=== PATIENT | female | born 1985 ===

== ENCOUNTER 2017-03-17 09:00 | Observation (INO) | payer SELFPAY ==
[~2017-03-17] VITALS: Ht 167.6 cm; Wt 78.5 kg
[2017-03-17] MEDS ORDERED: PREN-96 PO ×2 (09:44→09:57)
[2017-03-17 10:34] LABS: Basophils # (auto) 0 uL; Basophils % (auto) 0.2 % (0.0-2.0); Eosinophils # (auto) 0.1 uL; Eosinophils % (auto) 0.8 % (0.0-7.0); Hematocrit 34.4 % (36.0-46.0); Hemoglobin 11.7 g/dL (12.2-16.2); Lymphocytes # (auto) 1.8 uL; Lymphocytes % (auto) 20.8 % (10.0-50.0); Mean Corpuscular Hemoglobin 32.7 pg (28.0-32.0); Mean Platelet Volume 9.9 fL (6.9-10.8); Monocytes # (auto) 0.6 uL; Monocytes % (auto) 6.6 % (0.0-12.0); Neutrophils # (auto) 6.2 uL; Neutrophils % (auto) 71.6 % (37.0-80.0); Nucleated Red Blood Cells % 0.1 %; Platelet Count (auto) 163 10^3/uL (140-450); Red Cell Distribution Width 14.5 % (11.8-14.3); White Blood Cell 8.7 10^3/uL (4.4-10.8)
[2017-03-17 10:43] LABS: Urine Bilirubin Negative (Negative); Urine Blood Negative /uL (Negative); Urine Color Yellow (Yellow); Urine Glucose Normal (Normal); Urine Ketone Negative (Negative); Urine Mucus FEW (None Seen); Urine Nitrite Negative (Negative); Urine RBC <1 /hpf (0 - 4); Urine Squamous Epithelial Cell FEW /hpf (<5); Urine Urobilinogen Normal (Negative); Urine pH 7.5 (5.0-8.0)
[2017-03-17 10:55] LABS: Albumin 2.8 g/dL (3.4-5.0); BUN/Creatinine Ratio 15.9; Bilirubin, Total 0.2 mg/dL (0.2-1.0); Calcium 8.2 mg/dL (8.5-10.1); Potassium 3.7 mmol/L (3.5-5.1); Total Protein 6.9 g/dL (6.4-8.2); Uric Acid 3.7 mg/dL (2.6-6.0)
[2017-03-17 11:22] LABS: INR 0.88 (0.9-1.15); Partial Thromboplastin Time 27.8 sec (22.64-33.71); Prothrombin Time 9.6 sec (9.37-12.3)
== END 2017-03-17 11:35 | disposition home or self-care (01) | DRG 781 ==
LOC: LDRP 09:00
PROVIDERS: ADMIT Specialist; ATTEND Specialist
DX: O26.893 Other specified pregnancy related conditions, third trimester (principal); R10.9 Unspecified abdominal pain; Z3A.36 36 weeks gestation of pregnancy
CPT/HCPCS: 36415; 59025; 76805; 80053; 80307; 81001; 81002; 83036; 84550; 85025; 85610; 85730; 86592; 86703; 86762; 86850; 86900; 86901; 87340; G0378